=== PATIENT | female | born 1980 | race Two or more races ===

== ENCOUNTER 2024-06-27 10:38 | Emergency (ER) | payer MEDICAID, SELFPAY ==
[2024-06-27 10:39] VITALS: BMI 27.4
[2024-06-27 10:43] VITALS: BP 123/80; PULSE 79; RESP 19; TEMP 36.3; O2SAT 100
--- NOTE | 2024-06-27 10:59 | EKG_ITS ---
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
--- NOTE | 2024-06-27 11:06 | XR_ITS ---
Examination: AP chest single view Technique: AP portable upright chest single view Exam date and time: June 27, 2024 1133 hrs. Indications: Shortness of breath syncopal episode today. Findings: Minimal prominence left ventricle. Lungs are clear, no aspiration pneumonia The osseous structures are intact Impression: No active disease
--- NOTE | 2024-06-27 11:08 | EDNOTE_ITS ---
ED SOB =RME/HPI General Chief Complaint: Shortness of Breath/Dyspnea Stated Complaint: SOB, FEELS FAINT Time Seen by Provider: 06/27/24 10:43 Arrival date/time: 06/27/24 10:38 Limitations: no limitations RME / HPI RME / HPI Narrative: The patient presents with shortness of breath (SOB) since 1 AM. The patient has had a cough for the past two months and was diagnosed with community-acquired pneumonia (CAP) yesterday. Treatment with promethazine DM and Augmentin was initiated yesterday. The patient states that they feel much calmer and better upon arrival. The patient also has a history of anxiety. Related Data Home Medications ?Medication ?Instructions ?Recorded ?Confirmed aspirin 81 mg PO DAILY 12/05/20 12/05/20 insulin NPH and regular human 16 units subcut QPM Diabetes 12/05/20 12/05/20 Allergies Allergy/AdvReac Type Severity Reaction Status Date / Time No Known Allergies Allergy Verified 06/27/24 10:41 Review of Systems Review of Systems Systems Reviewed: All systems reviewed, normal except as documented ED Exam General Limitations: Present no limitations General appearance: Present alert and in no apparent distress Head Head exam: Present atraumatic Eye Eye exam: Present normal appearance ENT ENT exam: Present normal exam and normal oropharynx Neck Neck exam: Present normal inspection Chest Chest inspection: Present normal inspection Respiratory Respiratory exam: Present normal lung sounds bilaterally Cardiovascular Cardiovascular exam: Present regular rate and normal rhythm Abdominal Exam Abdominal exam: Present soft and normal bowel sounds Extremities Exam Extremities exam: Present normal inspection Back Exam Back exam: Present normal inspection Neurological Exam Neurological exam: Present alert and CN II-XII intact Psychiatric Psychiatric exam: Present normal affect and normal mood Skin Skin exam: Present warm and dry Course Quality Measures none Orders Category Date Time Status EKG (ED ONLY) *Do not use* NOW Care 06/27/24 10:59 Completed EKG (ED Only) Stat Exams 06/27/24 10:59 Draft XR chest 1V portable Stat Exams 06/27/24 11:06 Taken B-Type Natriuretic Peptide Stat Lab 06/27/24 12:23 Received CBC Stat Lab 06/27/24 12:23 Received Comprehensive Metabolic Panel Stat Lab 06/27/24 12:23 Received HCG,Qualitative Serum Stat Lab 06/27/24 12:23 Received Troponin I Stat Lab 06/27/24 12:23 Received Aspirin Chew Med 06/27/24 11:06 Discontinued 324 mg PO X1 ONE Vital Signs Vital signs: Vital Signs Temperature 97.4 F 06/27/24 10:43 Pulse Rate 79 06/27/24 10:43 Respiratory Rate 19 06/27/24 10:43 Blood Pressure 123/80 06/27/24 10:43 Pulse Oximetry (%) 100 06/27/24 10:43 Oxygen Delivery Method Room Air 06/27/24 10:43 Shortness of Breath / Dyspnea MDM Narrative MDM Narrative:: Medical Decision Making (MDM): EKG: The electrocardiogram (EKG) is nonischemic. Laboratory Results: All labs are within normal limits. Chest X-ray: The chest x-ray reveals a left lower lobe infiltrate. Treatment: The patient has already started on Augmentin and is encouraged to continue the treatment until completion of the course. Assessment: It appears that the panic attack was the cause of the patient's chest tightness and difficulty breathing. Once the patient was reassured, her symptoms completely resolved without further treatment in the emergency department. Patient data External records reviewed:: [facility] previous records Clinical information provided by:: patient and family Social determinants that could affect healthcare access:: none Patient has the following chronic illnesses:: Pneumonia and panic attack How is presenting disease/condition affected by chronic disease/condition?: exacerbated by Evaluation data The following diagnostics were reviewed and interpreted by me:: lab results, rad iology exam(s) and EKG tracing(s) Lab and/or radiology exams considered but not ordered:: Not applicable Interpretation Summary: As above Medications / Prescriptions Medications or Prescriptions considered but not ordered:: Not applicable Medication administrations:: Medication Administration History Discontinued Medications Aspirin (Aspirin 81 Mg Chew) 324 mg PO X1 ONE Stop: 06/27/24 11:07 Last Admin: 06/27/24 11:36 Dose: 324 mg Documented By: TM Noted Consultations Consultation(s) initiated? (list below): No Diagnosis Shortness of Breath Differential Diagnosis: acute exacerbation of chronic obstructive airways disease and community acquired pneumonia Most likely diagnosis given after review of the tests above:: Panic attack Admission Indicated Admission indicated?: not indicated Admission Request Was there a request for admission?: No Disposition Plan Disposition Plan: Discharge Discharge Attestation Discharge Attestation: The patient and all family members were given an opportunity to ask questions and understood the discharge instructions. Discharge instructions specifically effects, indications for sooner follow up or return to the emergency department, and the expected course of current diagnosis. Patient condition: Stable Discharge Plan Plan Patient Disposition: HOME (Self Care) Patient condition on transfer: Stable Prescriptions/Referrals Prescriptions/Med Rec: No Action insulin NPH and regular human 16 units 16 units subcut QPM Rx Instructions: take 1 dose nightly. discontinue after delivery. aspirin 81 mg PO DAILY Rx Instructions: 1 tab let daily. discontinue after delivery. Referrals: Tennille Hernandez PA-C [Primary Care Provider] - In 1 week Problem List Clinical Impression: Panic attack Patient/Caregiver Discharge Instructions Discharge Activity: activity as tolerated Education Materials: ED Panic Attack Print Language: Swedish Stand Alone Forms: Marya Award Info., Patient Portal Info Letter
[2024-06-27] MEDS: ASPIRIN 81 MG CHEW 324 MG PO (11:36)
[2024-06-27 12:33] VITALS: BP 111/64; PULSE 62; RESP 18; TEMP 36.6; O2SAT 97
[2024-06-27 12:35] LABS: Basophils % (Auto) 0 % (0-2.5); Eosinophils # (Auto) 0.1 Thou/mm3 (0.0-0.5); Eosinophils % (Auto) 1 % (0-10); Hemoglobin 11.4 g/dL (12.0-16.0); Immature Granulocytes % (Auto) 1 % (0-0); Immature Granulocytes Auto 0.03 Thou/mm3 (0.00-0.00); Lymphocytes # (Auto) 1.5 Thou/mm3 (1.0-4.8); Lymphocytes % (Auto) 27 % (10-50); Mean Corpuscular HGB Conc 33.5 g/dl (31.0-37.0); Mean Corpuscular Hemoglobin 25.2 pg (25.0-35.0); Mean Corpuscular Volume 75 fL (80-100); Monocytes # (Auto) 0.4 Thou/mm3 (0.0-0.8); Monocytes % (Auto) 8 % (0-12); Neutrophils # (Auto) 3.5 Thou/mm3 (1.8-7.7); Neutrophils % (Auto) 63 % (37-80); Nucleated Red Blood Cell % 0 /100 WBC (0); Platelet Count 271 Thou/mm3 (140-440); RDW Standard Deviation 39.8 fL (36.4-46.3); Red Blood Count 4.53 Miln/mm3 (4.00-5.20); White Blood Count 5.5 Thou/mm3 (3.6-11.0)
[2024-06-27 12:51] LABS: B-Type Natriuretic Peptide < 20 pg/mL (0-100)
[2024-06-27 12:52] LABS: Alanine Aminotransferase 68 U/L (10-49); Albumin, Serum 4.1 gm/dL (3.5-5.0); Albumin/Globulin Ratio 1.7 (1.2-2.2); Alkaline Phosphatase 77 U/L (46-116); Anion Gap 5 (7-16); Aspartate Amino Transferase 49 U/L (0-34); BUN/Creatinine Ratio 27 Ratio (12-20); Bilirubin,Total 0.7 mg/dL (0.3-1.2); Blood Urea Nitrogen 16 mg/dL (9-23); Calcium 9.1 mg/dL (8.3-10.6); Calcium (Corrected) 9.1 mg/dL (8.5-10.1); Carbon Dioxide 25.8 mMol/L (20.0-31.0); Chloride 109 mMol/L (98-107); Creatinine (Component) 0.6 mg/dL (0.6-1.3); Estimated Creatinine Clearance 105.9 mL/min (>60); Globulin 2.4 gm/dL (2.3-3.5); Glucose 137 mg/dL (74-106); Osmolality,Calculated 282 (275-295); Potassium 3.3 mMol/L (3.4-5.1); Sodium 140 mMol/L (136-145); Total Protein 6.5 gm/dL (5.7-8.2); Troponin I < 0.020 ng/mL (0.0-0.045); eGFR > 60 See Note
[2024-06-27 13:07] LABS: HCG,Qualitative Serum Negative
== END 2024-06-27 14:19 | disposition home or self-care (01) ==
PROVIDERS: Emergency Provider Emergency Medicine; PCP Physician Assistant
DX: F41.0 Panic disorder [episodic paroxysmal anxiety] (principal); R94.31 Abnormal electrocardiogram [ECG] [EKG]; R06.02 Shortness of breath; R07.89 Other chest pain
CPT/HCPCS: 36415; 71045; 80053; 83880; 84484; 84703; 85025; 93005; 99283; A9270